=== PATIENT | male | born 1940 | race Caucasian/White ===

== ENCOUNTER 2022-02-22 10:32 | Inpatient (IN) ==
[2022-02-22] MEDS ORDERED: IOPAMIDOL 100 ML BOTTLE IV ONE (10:33)
--- NOTE | 2022-02-22 11:00 | Emergency Department Note ---
SOB HPI General Chief Complaint: Shortness of Breath/Dyspnea Stated Complaint: shortness of breath Time Seen by Provider: 02/22/22 10:48 Source: EMS Mode of arrival: EMS History of Present Illness HPI Narrative: Narrative: 81-year-old male was brought to the emergency room by EMS to be evaluated for shortness of breath. He tested positive at [facility] today and has oxygen saturations dropping to the low 80s without supplemental oxygen. He was brought in on 5 L/min via nasal cannula and was sitting in the low 90s. He does not have an oxygen demand at home. He does have a prescription for at home oxygen but he does not use it and does not typically need it. He has a history of coronary artery disease, stage III CKD, chronic low back pain with morphine pump, alcohol abuse, type 2 diabetes, prostate cancer in remission, chronic candidiasis and a parkinsonian tremor. On 15 February he had a ground-level fall at his home that had worsening right knee pain and back pain. He was unable to ambulate and was admitted to the hospital. He did have an normal EKG but positive troponin. Dr. Solares baking factory worker at [facility] was consulted who just suggested to trend troponins. He was subsequently discharged to [facility] for rehabilitation where he currently resides and tested positive for COVID today and had hypoxia at rest. He denies fever, chills, body aches, nausea or vomiting. He is slightly confused and cannot provide any significant history. His is in the parking lot and the nurses talk to her on the phone and she provided additional history. Related Data Home Medications Medication Instructions Recorded Confirmed polyethylene glycol 3350 17 17 g PO QDAY each 02/20/15 02/22/22 gram/dose oral powder morphine 15 mg/mL intravenous See Dose Instructions .ROUTE 06/12/15 01/27/22 syringe .COMPLEX PRN loratadine 10 mg tablet (Claritin) 10 mg PO QDAY 05/08/20 01/27/22 atorvastatin 40 mg tablet (Lipitor) 40 mg PO QDAY 05/20/21 02/22/22 clopidogrel 75 mg tablet 75 mg PO QDAY tab 05/20/21 02/22/22 aspirin 81 mg tablet 81 mg PO DAILY 02/22/22 02/22/22 latanoprost 0.005 % eye drops 1 drp OPHTHALMIC (EYE) QHS 02/22/22 02/22/22 Previous Rx's Medication Instructions Recorded diabetic supplies, miscellan. #1 each 10/15/15 Prodigy No Coding (blood sugar #50 each NS 02/04/16 diagnostic) Manual Wheelchair #1 ea 12/01/17 Adult Depends (Prevail) #60 each 04/27/18 nitroglycerin 0.3 mg sublingual 0.3 mg SUBLINGUAL Q5-15M PRN #30 06/26/19 tablet tab diclofenac sodium 1 % topical gel 2 g TOPICAL QID PRN #100 g 02/16/20 amlodipine 5 mg tablet 5 mg PO BID #120 tab 10/27/21 nystatin 100,000 unit/gram topical 1 applic TOPICAL BID #180 g 11/04/21 powder linaclotide 145 mcg capsule 145 mcg PO QAM #30 cap 11/06/21 (Linzess) cholecalciferol (vitamin D3) 50 50 mcg PO QDAY #90 cap 11/17/21 mcg (2,000 unit) capsule carvedilol 25 mg tablet 25 mg PO BID 90 Days #180 tab 01/27/22 hydrocodone 10 mg-acetaminophen 1 tab PO Q4H PRN #90 tab MDD 6 01/27/22 325 mg tablet metformin 500 mg tablet 500 mg PO BID 90 Days #180 tab 01/27/22 omeprazole 20 mg capsule,delayed 20 mg PO QDAY #90 cap 02/17/22 release Allergies Allergy/AdvReac Type Severity Reaction Status Date / Time No Known Drug Allergies Allergy Verified 01/27/22 10:56 Review of Systems ROS ROS Narrative: Narrative: All systems ED: reviewed and negative except as stated. [facility] Narrative Patient History Narrative: Narrative: Medical/Surgical/Family History All Active Problems (Updated 02/22/22 @ 13:06 by Donta Reynolds PA-C) COVID-19 (Acute) Parkinsonian tremor (Acute) At high risk for falls (Acute) Physical deconditioning (Acute) Constipation due to opioid therapy (Acute) Left arm pain (Acute) Indigestion (Acute) Candidal intertrigo (Acute) Chest pain (Acute) Medicare annual wellness visit, subsequent (Acute) Falls (Acute) Bilateral impacted cerumen (Acute) Hypertension in stage 3 chronic kidney disease due to type 2 diabetes mellitus (Chronic) Use of opiates for therapeutic purposes (Chronic) Hyperkalemia (Acute) Vitamin D deficiency (Acute) Hyperkalemia (Acute) Tinea cruris (Acute) Annual physical exam (Acute) Medicare annual wellness visit, subsequent (Acute) Stasis dermatitis (Acute) Lower extremity edema (Chronic) Stasis dermatitis (Acute) Tobacco use (Chronic) Hypertension (Chronic) Heart disease (Chronic) Postlaminectomy syndrome, not elsewhere classified (Chronic) Failed back syndrome (Chronic) Chronic kidney disease (CKD) stage G3a/A2, moderately decreased glomerular filtration rate (GFR) between 45-59 mL/min/1.73 square meter and albuminuria creatinine ratio between 30-299 mg/g (Chronic) Type 2 diabetes mellitus without complications (Chronic) Back pain (Chronic) Hernia (Chronic) Gangrene (Chronic) Ruptured appendix (Chronic) Stasis dermatitis of both legs (Chronic) Cobalamin deficiency (Chronic) Pneumonia (Chronic) Chronic kidney disease, stage II (mild) (Chronic) Acidosis (Chronic) Hypertensive renal disease (Chronic) History of radical prostatectomy (Acute) History of lumbosacral spine surgery (Chronic) Status post lumbar spinal fusion (Chronic) History of intraocular lens implant (Acute) History of right inguinal hernia repair (Chronic) History of appendectomy (Chronic) Spinal stenosis (Acute) Prostate cancer (Chronic) Pancreatitis (Chronic ~2013) Open wound (Acute 10/01/14) Hypomagnesemia (Acute) Hypokalemia (Acute) Hypertension, essential, benign (Chronic) Hyperlipidemia (Chronic) Hypercholesterolemia (Acute) Gout (Acute) Gastroesophageal reflux (Acute) Erectile dysfunction (Acute) Edema (Acute 10/01/14) Diverticulosis of colon (Acute) Dehydration (Acute) Degeneration of lumbar or lumbosacral intervertebral disc (Chronic) Deep vein thrombosis (Acute) Constipation (Acute) Colonic polyp (Acute) Chronic low back pain (Chronic 10/01/14) Stage III chronic kidney disease (Chronic) Chest pain (Acute) Barretts esophagus (Acute) Back pain, chronic (Acute) Anemia (Chronic) Medical History Acidosis bicarb 16, if persistent will add sodium bicarb,goal is more than 22 Anemia Mycrocytic Annual physical exam At high risk for falls Back pain Back pain, chronic Barretts esophagus Candidal intertrigo Chest pain Chest pain Chronic kidney disease, stage II (mild) Chronic low back pain (10/01/14) With intrathecal pump in place Cobalamin deficiency ? from omeprazole start 1000 mcg b12 supplement Colonic polyp Constipation Deep vein thrombosis Degeneration of lumbar or lumbosacral intervertebral disc Dehydration Diverticulosis of colon Edema (10/01/14) Erectile dysfunction Failed back syndrome Gangrene age 8 Gastroesophageal reflux Gout Heart disease Hernia Hypercholesterolemia Hyperkalemia Hyperkalemia Hyperlipidemia TG more than 200 LDL above goal HDL is low restart fenofibrate at 54mg po daily will follow and add statins next visit Hypertension Hypertension, essential, benign Hypertensive renal disease Hypokalemia Hypomagnesemia Indigestion Left arm pain Lower extremity edema Medicare annual wellness visit, subsequent Medicare annual wellness visit, subsequent NSTEMI (non-ST elevated myocardial infarction) Open wound (10/01/14) Left Abdomen Pancreatitis (~2013) Physical deconditioning Pneumonia CXR shows mild right ML infitrate cough for one week fever for one day Chest exam shows coarse rales levofloxacin prescribed for a week advised to follow up with PCP in 1-2 weeks also go to ED if symptoms worsen Postlaminectomy syndrome, not elsewhere classified Prediabetes Prostate cancer S/P radical prostatectomy Ruptured appendix Spinal stenosis Stage III chronic kidney disease HTN/NSASIDs >> DM and no proteinuria Stasis dermatitis Stasis dermatitis Tinea cruris Tobacco use Type 2 diabetes mellitus Type 2 diabetes mellitus without complications Use of opiates for therapeutic purposes Surgical History History of appendectomy Ruptured Appendix History of hernia repair x3, mesh inserted in last History of intraocular lens implant Bilateral History of lumbosacral spine surgery Diskectomy X2 History of radical prostatectomy History of right inguinal hernia repair History of surgery Implant / replace [employer] pump w/sed 07/19/2019 REVIS[facility] 09/21/14 Pump Dye Study w/o sed 08/01/2014 L3-S1 RFTC Right w/sed 06/27/2014 MBB lumbar, Right L3-S1 w/sed 06/12/2014 MBB lumbar, Right L3-S1 w/sed 05/24/2014 SI Joint Injection Right w/sed 05/09/2014 TF KOKI #2 L1-2 w/sed 03/01/2014 TF KOKI #1 L1-2 bilat w/sed 02/07/2014 replace [employer]tron[employer] pump [facility] 11/11/12 SI Joint Injection, right 11/13/10 w/sed Status post lumbar spinal fusion Family History Mother Malignant neoplasm of breast Father , at 96y Chronic obstructive pulmonary disease Unknown Diabetes mellitus Parkinson's Disease Social History Smoking Status: Never smoker Alcohol Intake Frequency: 0-2 drinks per day Substance Use: does not use Exam Narrative Narrative: Narrative: Gen: Patient is lethargic, with 5 L via nasal cannula, he is slow to respond but he is aware he is at the hospital Eyes: PERRL, no conjunctival injection , and symmetrical lids. Sclerae non icteric HENMT: Normocephalic Atraumatic head, external nose and ears. Moist MM. Neck: Symmetric, trachea midline, no nuchal rigidity CVS: +S1/S2, No murmurs or gallops. Radial pulses 2+ and equal bilat. No swelling RESP: Increased respiratory effort, no noted wheezes rales or ronchi. MSK: Extremities w/o deformity or ttp. No cyanosis or clubbing. Skin: Warm, Dry . No rashes or lesions . Cap refill less than 2. Neuro: No focal neurological deficit Psych: Patient is slow to respond and slightly confused, he is oriented to place and self. Appropriate mood and affect . Course Vital Signs Vital signs: Vital Signs Temperature 98.6 F 02/22/22 10:41 Pulse Rate 64 02/22/22 10:41 Respiratory Rate 18 02/22/22 10:41 Blood Pressure 143/60 02/22/22 10:41 Pulse Oximetry (%) 91 02/22/22 10:41 Temperature 98.6 F 02/22/22 10:41 Pulse Rate 58 L 02/22/22 12:16 Respiratory Rate 11 L 02/22/22 12:16 Blood Pressure 135/99 02/22/22 12:16 Pulse Oximetry (%) 97 02/22/22 12:16 MDM MDM Narrative Medical decision making narrative: Narrative: Patient was hypoxic at [place] and tested positive for COVID. He requires 5 L to maintain a low 90s. He does not know whether he has had the COVID vaccinations. In reviewing his records he has had the Pfizer series. He denies fever, chills, body aches, nausea or vomiting. He is profoundly short of constantino ath.His pulmonary exam is otherwise unremarkable. He is maintaining 91% on 5 L at this time. He is not tachycardic, he does not flag for sepsis. He will be evaluated with CBC, Chem-8, hepatic panel, troponin, venous blood gas lactate, EKG, and will likely have an angiogram if his kidney function will tolerate. CBC: Mild anemia, slightly decreased white count otherwise unremarkable Chem-8: Unremarkable Hepatic Panel: Troponin: Normal Venous blood gas lactate: Increased bicarb and CO2 otherwise unremarkable normal lactate EKG: Sinus rhythm at a rate of 60 bpm with prolonged VT interval, left ventricular hypertrophy and anterior Q waves and borderline T wave abnormality in the inferior leads, when compared to EKG from January of last year there are no significant changes in morphology. No evidence of acute ischemia at this time. Patient is estimated GFR is 46 and an angiogram of the chest will be obtained at this time to rule out pulmonary embolism or other pathology of the chest. CTA: No PE, bands of atelectasis at the base, bronchitis, no typical features for COVID, acute compression fracture of T12 Hospitalist will be consulted for admission at this time Dr Pelayo: Graciously agreed to admit the patient for further work-up and evaluation for COVID-pneumonia. Lab Data Result diagrams: 02/22/22 11:06 Labs: Lab Results 02/22/22 02/22/22 02/22/22 Range/Units 11:06 11:09 11:23 WBC 4.3 L (4.5-11.0) K/mcL RBC 3.94 L (4.63-6.08) M/mcL Hgb 12.9 L (13.7-17.5) g/dL Hct 39.7 L (40.1-51.0) % POC Hct 41.0 (41-55) MCV 100.8 H (80.0-100.0) fL MCH 32.7 (26.0-34.0) pg MCHC 32.5 (31.0-36.0) g/dL RDW 14.5 (11.5-14.5) % Plt Count 231 (140-440) K/mcL MPV 9.7 (7.4-10.4) fL Immature Gran % (Auto) 0.5 (0.0-0.5) % Neut % (Auto) 48.4 (38.0-78.0) % Lymph % (Auto) 33.2 (15.5-49.0) % Wetzel % (Auto) 15.8 H (1.0-12.0) % Eos % (Auto) 1.6 (0.0-7.0) % Baso % (Auto) 0.5 (0.0-2.0) % Lymph # (Auto) 1.43 L (1.50-4.80) K/mcL Wetzel # (Auto) 0.68 (0.10-0.90) K/mcL Eos # (Auto) 0.07 (0.00-0.70) K/mcL Baso # (Auto) 0.02 (0.00-0.30) K/mcL Immature Gran # 0.02 (0.00-0.05) K/mcl Absolute Neutrophils 2.11 (1.80-8.00) K/mcL POC VBG pH (7.32-7.42) POC VBG pCO2 at Temp (41-51) POC VBG pO2 (25-40) POC VBG HCO3 (24-28) POC VBG Total CO2 (25-29) POC Venous O2 Sat (40-70) POC VBG Base Excess (-2-2) POC Sodium 134 (133-145) POC Potassium 4.1 (3.3-5.1) POC Chloride 96 (96-108) POC Total CO2 28.0 (22-30) POC BUN 18 (6-20) POC Creatinine 1.5 H (0.6-1.2) POC Glucose 112 H (70-105) POC Venous Lactate (0.5-2) POC WB Ioniz Calcium 1.09 L (1.16-1.32) POC Troponin I 0.03 (0.02-0.08) // Range/Units 11:26 WBC (4.5-11.0) K/mcL RBC (4.63-6.08) M/mcL Hgb (13.7-17.5) g/dL Hct (40.1-51.0) % POC Hct (41-55) MCV (80.0-100.0) fL MCH (26.0-34.0) pg MCHC (31.0-36.0) g/dL RDW (11.5-14.5) % Plt Count (140-440) K/mcL MPV (7.4-10.4) fL Immature Gran % (Auto) (0.0-0.5) % Neut % (Auto) (38.0-78.0) % Lymph % (Auto) (15.5-49.0) % Wetzel % (Auto) (1.0-12.0) % Eos % (Auto) (0.0-7.0) % Baso % (Auto) (0.0-2.0) % Lymph # (Auto) (1.50-4.80) K/mcL Wetzel # (Auto) (0.10-0.90) K/mcL Eos # (Auto) (0.00-0.70) K/mcL Baso # (Auto) (0.00-0.30) K/mcL Immature Gran # (0.00-0.05) K/mcl Absolute Neutrophils (1.80-8.00) K/mcL POC VBG pH 7.40 (7.32-7.42) POC VBG pCO2 at Temp 50.9 (41-51) POC VBG pO2 42 H (25-40) POC VBG HCO3 31.9 H (24-28) POC VBG Total CO2 33.0 H (25-29) POC Venous O2 Sat 76.0 H (40-70) POC VBG Base Excess 7.0 H* (-2-2) POC Sodium (133-145) POC Potassium (3.3-5.1) POC Chloride (96-108) POC Total CO2 (22-30) POC BUN (6-20) POC Creatinine (0.6-1.2) POC Glucose (70-105) POC Venous Lactate 0.8 (0.5-2) POC WB Ioniz Calcium (1.16-1.32) POC Troponin I (0.02-0.08) Discharge Plan Patient/Caregiver Discharge Instructions Pt seen by TUBE TELLER/PA only: Yes Clinical Impression: COVID-19 Patient Disposition: Xfer As Inpt ([facility]) Follow up with: Louis Saldivar MD [Primary Care Provider] - Prescriptions: No Action amlodipine 5 mg tablet 5 mg PO BID Qty: 120 2RF nystatin 100,000 unit/gram powder 1 applic topical BID Qty: 180 1RF Linzess 145 mcg capsule 145 mcg PO QAM Qty: 30 1RF cholecalciferol (vitamin D3) 50 mcg (2,000 unit) capsule 50 mcg PO QDAY Qty: 90 3RF metformin 500 mg tablet 500 mg PO BID 90 Days Qty: 180 1RF carvedilol 25 mg tablet 25 mg PO BID 90 Days Qty: 180 1RF Rx Instructions: administer with food omeprazole 20 mg capsule,delayed release(DR/EC) 20 mg PO QDAY Qty: 90 1RF polyethylene glycol 3350 17 gram/dose powder 17 g PO QDAY 0RF Label Comments: Mixed with with 8 oz water, juice, soda, coffee or tea Rx Instructions: mix into 4-8 oz. of any hot/cold/room temp. beverage; use immediately (DME) diabetic supplies, miscellan. kit See Dose Instructions .ROUTE .MEDSUPPLY Qty: 1 0RF Dose Instruction: As directed Rx Instructions: As directed to test once daily (DME) blood sugar diagnostic [Prodigy No Coding] strip See Dose Instructions .ROUTE .MEDSUPPLY Qty: 50 3RF Dose Instruction: As directed Rx Instructions: As directed to test once daily (DME) Manual Wheelchair Qty: 1 0RF Dose Instruction: As directed Rx Instructions: As directed (DME) Adult Depends (Prevail) Qty: 60 0RF Dose Instruction: As directed Rx Instructions: Use 2-3X/day loratadine [Claritin] 10 mg tablet 10 mg PO QDAY 0RF diclofenac sodium 1 % gel 2 g TOPICAL QID PRN (Reason: knee pain) Qty: 100 1RF hydrocodone-acetaminophen 10-325 mg tablet 1 tab PO Q4H MDD 6 PRN (Reason: Pain) Qty: 90 0RF Rx Instructions: 7*MUST LAST 30 DAYS* P/U /, Start / clopidogrel 75 mg tablet 75 mg PO QDAY 0RF Label Comments: TAKE 1 TABLET BY MOUTH ONCE DAILY atorvastatin [Lipitor] 40 mg tablet 40 mg PO QDAY 0RF morphine 15 mg/mL cartridge See Dose Instructions mg .ROUTE .COMPLEX PRN (Reason: Pain) 0RF Rx Instructions: patient unsure of dose, uses in pain pump PRN nitroglycerin 0.3 mg tablet, sublingual 0.3 mg SUBLINGUAL Q5-15M PRN (Reason: chest pain) Qty: 30 0RF Rx Instructions: until response; do not exceed 3 doses per episode Adult Low Dose Aspirin 81 mg Tablet 81 mg PO DAILY 0RF latanoprost 0.005 % drops 1 drp OPHTHALMIC (EYE) QHS 0RF Label Comments: [NO ORIGINAL SIG]
[2022-02-22 11:14] LABS: POC Calcium, Ionized 1.09 (1.16-1.32); POC Creatinine 1.5 (0.6-1.2); POC Potassium 4.1 (3.3-5.1)
[2022-02-22 11:46] LABS: Basophils # (Auto) 0.02 K/mcL (0.00-0.30); Basophils % (Auto) 0.5 % (0.0-2.0); Eosinophils # (Auto) 0.07 K/mcL (0.00-0.70); Eosinophils % (Auto) 1.6 % (0.0-7.0); Hematocrit 39.7 % (40.1-51.0); Hemoglobin 12.9 g/dL (13.7-17.5); Lymphocytes # (Auto) 1.43 K/mcL (1.50-4.80); Lymphocytes % (Auto) 33.2 % (15.5-49.0); Mean Cell Volume 100.8 fL (80.0-100.0); Mean Corpuscular HGB Conc 32.5 g/dL (31.0-36.0); Mean Platelet Volume 9.7 fL (7.4-10.4); Monocytes # (Auto) 0.68 K/mcL (0.10-0.90); Monocytes % (Auto) 15.8 % (1.0-12.0); Neutrophils % (Auto) 48.4 % (38.0-78.0); Platelet Count 231 K/mcL (140-440); RBC 3.94 M/mcL (4.63-6.08); Red Cell Distribution Width 14.5 % (11.5-14.5); WBC 4.3 K/mcL (4.5-11.0)
[2022-02-22] MEDS ORDERED: 0.9 % SODIUM CHLORIDE 500 ML IV ONE (12:05)
--- NOTE | 2022-02-22 12:34 | Cat Scan Report ---
History: Hypoxia, tested positive for Covid, short of breath, back pain TECHNIQUE: Following injection of intravenous nonionic contrast the chest was imaged during the pulmonary arterial phase. Sagittal, coronal and axial MIPS images were created. The radiation exposure was limited using dose reduction technology. FINDINGS: The pulmonary arteries are normal without evidence of pulmonary emboli. There are several bands of atelectasis in both lung bases and the inferior segment of the lingula. There is bronchial wall thickening in the posterior basal segments of both lower lobes. Some of the peripheral bronchi in the right lower lobe are occluded by mucus. There are no groundglass alveolar infiltrates to indicate typical COVID pneumonia. There is no lobar consolidation or mass. No pleural effusion is present. There are no enlarged lymph nodes. The aorta is normal in caliber and there is minimal plaque formation. Heart size is normal. There are few calcified plaques in the coronary arteries. Patient has a mild dextroscoliotic curvature in the midthoracic spine. An acute mild transversely oriented compression fracture is seen beneath the superior endplate of T12 causing mild loss in height. There is an old moderate wedge compression fracture at L1 and chronic disc degeneration at L1-2. Patient has a spinal catheter with the tip located at the T6 level. Moderate bilateral gynecomastia is present. IMPRESSION: No evidence of pulmonary emboli Atelectasis and bronchitis in both lower lobes New mild compression fracture involving the superior endplate of T12 Donta Reynolds was called with the report Interpreted and Authenticated by: Jules Craig 02/22/22
[2022-02-22 13:22] LABS: ALT/SGPT 16 U/L (<40); AST/SGOT 35 U/L (<40); Alkaline Phosphatase 70 U/L (39-117); Bilirubin,Direct < 0.2 mg/dL (0-0.3); Bilirubin,Total 0.3 mg/dL (0.1-1.0); Globulin 3.2 gm/dL (2.2-3.7)
--- NOTE | 2022-02-22 13:55 | Internal Med History&Physical ---
HPI History of Present Illness Patient information: Note initiated : 02/22/22 at 1:40 pm Service Date, if different from initiated Date: [] Patient: Mikel Briggs 81 y/o M admitted on for shortness of breath. Chief Complaint: [oxygen desaturation] Chief complaint: oxygen desaturation History of present illness: Mr. Briggs is a 81 year old M history of lumbar spine compression fracture status post morphine pain pump, CAD, type 2 diabetes mellitus, chronic kidney disease stage III, Parkinson disease, prostate cancer in remission, presenting with oxygen desaturations for 1 day. Patient has a history of recent fall and he was being discharged to [facility]. He has a history of L1 compression fracture on morphine pain pump. Earlier today he was found by [facility] staff to have oxygen and desaturating into the mid 80s on room air. He was being tested positive for COVID-pneumonia today. Patient stated that he does not have any subjective shortness of breath. He does not have any cough or sputum productions. He does not have any respiratory wheezings. He does not have any subjective fever or chills. He is feeling mild general body weakness. He is complaining of moderate lower back pain. Vital signs significant for oxygen desaturating to the mid 80s as well as bradycardia with heart rate in the 50s. He was being placed on 5 L/min of supplemental oxygen's. Labs significant for lack of leukocytosis with WBC 4.3. Serum creatinine level 1.5. Blood glucose 112. CT chest negative for any PE. It instead showing bilateral atelectasis and bronchitis. Constitutional Constitutional: Present weakness; Absent chills, excessive sweating, fatigue or fever(s) EENT Eyes: Absent blurry vision, change in vision, loss of vision or other visual disturbances Ears: Absent decreased hearing or tinnitus Nose, mouth and throat: Absent abnormal hearing, dry mouth, headache(s), nasal congestion or sore throat Cardiovascular Cardiovascular: Absent chest pain, chest pain at rest, edema, irregular heart rhythm or palpatations Respiratory Respiratory: Absent cough, dyspnea or wheezing Gastrointestinal Gastrointestinal: Absent abdominal pain, constipation, diarrhea, nausea or vomiting Musculoskeletal Musculoskeletal: Present back pain; Absent deformity, limited range of motion, muscle cramps, muscle weakness or numbness Integumentary Integumentary: Absent lesions, rash or wounds Neurological Neurological: Absent focal weakness, headache(s) or numbness Psychiatric Psychiatric: Absent anxiety, depression or hallucinations PFSH PFSH All Active Problems (Updated 02/22/22 @ 13:48 by Rafiq Pelayo MD) CAD (coronary artery disease) (Acute) Anemia, macrocytic (Acute) COVID-19 (Acute) Parkinsonian tremor (Acute) At high risk for falls (Acute) Physical deconditioning (Acute) Constipation due to opioid therapy (Acute) Left arm pain (Acute) Indigestion (Acute) Candidal intertrigo (Acute) Chest pain (Acute) Medicare annual wellness visit, subsequent (Acute) Falls (Acute) Bilateral impacted cerumen (Acute) Hypertension in stage 3 chronic kidney disease due to type 2 diabetes mellitus (Chronic) Use of opiates for therapeutic purposes (Chronic) Hyperkalemia (Acute) Vitamin D deficiency (Acute) Hyperkalemia (Acute) Tinea cruris (Acute) Annual physical exam (Acute) Medicare annual wellness visit, subsequent (Acute) Stasis dermatitis (Acute) Lower extremity edema (Chronic) Stasis dermatitis (Acute) Tobacco use (Chronic) Hypertension (Chronic) Heart disease (Chronic) Postlaminectomy syndrome, not elsewhere classified (Chronic) Failed back syndrome (Chronic) Chronic kidney disease (CKD) stage G3a/A2, moderately decreased glomerular filtration rate (GFR) between 45-59 mL/min/1.73 square meter and albuminuria creatinine ratio between 30-299 mg/g (Chronic) Type 2 diabetes mellitus without complications (Chronic) Back pain (Chronic) Hernia (Chronic) Gangrene (Chronic) Ruptured appendix (Chronic) Stasis dermatitis of both legs (Chronic) Cobalamin deficiency (Chronic) Pneumonia (Chronic) Chronic kidney disease, stage II (mild) (Chronic) Acidosis (Chronic) Hypertensive renal disease (Chronic) History of radical prostatectomy (Acute) History of lumbosacral spine surgery (Chronic) Status post lumbar spinal fusion (Chronic) History of intraocular lens implant (Acute) History of right inguinal hernia repair (Chronic) History of appendectomy (Chronic) Spinal stenosis (Acute) Prostate cancer (Chronic) Pancreatitis (Chronic ~2014) Open wound (Acute 10/01/14) Hypomagnesemia (Acute) Hypokalemia (Acute) Hypertension, essential, benign (Chronic) Hyperlipidemia (Chronic) Hypercholesterolemia (Acute) Gout (Acute) Gastroesophageal reflux (Acute) Erectile dysfunction (Acute) Edema (Acute 10/01/14) Diverticulosis of colon (Acute) Dehydration (Acute) Degeneration of lumbar or lumbosacral intervertebral disc (Chronic) Deep vein thrombosis (Acute) Constipation (Acute) Colonic polyp (Acute) Chronic low back pain (Chronic 10/01/14) Stage III chronic kidney disease (Chronic) Chest pain (Acute) Barretts esophagus (Acute) Back pain, chronic (Acute) Anemia (Chronic) Medical History Acidosis bicarb 16, if persistent will add sodium bicarb,goal is more than 22 Anemia Mycrocytic Annual physical exam At high risk for falls Back pain Back pain, chronic Barretts esophagus Candidal intertrigo Chest pain Chest pain Chronic kidney disease, stage II (mild) Chronic low back pain (10/01/14) With intrathecal pump in place Cobalamin deficiency ? from omeprazole start 1000 mcg b12 supplement Colonic polyp Constipation Deep vein thrombosis Degeneration of lumbar or lumbosacral intervertebral disc Dehydration Diverticulosis of colon Edema (10/01/14) Erectile dysfunction Failed back syndrome Gangrene age 8 Gastroesophageal reflux Gout Heart disease Hernia Hypercholesterolemia Hyperkalemia Hyperkalemia Hyperlipidemia TG more than 200 LDL above goal HDL is low restart fenofibrate at 54mg po daily will follow and add statins next visit Hypertension Hypertension, essential, benign Hypertensive renal disease Hypokalemia Hypomagnesemia Indigestion Left arm pain Lower extremity edema Medicare annual wellness visit, subsequent Medicare annual wellness visit, subsequent NSTEMI (non-ST elevated myocardial infarction) Open wound (10/01/14) Left Abdomen Pancreatitis (~2013) Physical deconditioning Pneumonia CXR shows mild right ML infitrate cough for one week fever for one day Chest exam shows coarse rales levofloxacin prescribed for a week advised to follow up with PCP in 1-2 weeks also go to ED if symptoms worsen Postlaminectomy syndrome, not elsewhere classified Prediabetes Prostate cancer S/P radical prostatectomy Ruptured appendix Spinal stenosis Stage III chronic kidney disease HTN/NSASIDs >> DM and no proteinuria Stasis dermatitis Stasis dermatitis Tinea cruris Tobacco use Type 2 diabetes mellitus Type 2 diabetes mellitus without complications Use of opiates for therapeutic purposes Surgical History History of appendectomy Ruptured Appendix History of hernia repair x3, mesh inserted in last History of intraocular lens implant Bilateral History of lumbosacral spine surgery Diskectomy X2 History of radical prostatectomy History of right inguinal hernia repair History of surgery Implant / replace [employer] pump w/sed 07/19/2019 REVISION CATHETER TS 09/21/14 Pump Dye Study w/o sed 08/01/2014 L3-S1 RFTC Right w/sed 06/27/2014 MBB lumbar, Right L3-S1 w/sed 06/12/2014 MBB lumbar, Right L3-S1 w/sed 05/24/2014 SI Joint Injection Right w/sed 05/09/2014 TF KOKI #2 L1-2 w/sed 03/01/2014 TF KOKI #1 L1-2 bilat w/sed 02/07/2014 replace [employer] pump SJRMC 11/11/12 SI Joint Injection, right 11/13/10 w/sed Status post lumbar spinal fusion Family History Mother Malignant neoplasm of breast Father , at 96y Chronic obstructive pulmonary disease Unknown Diabetes mellitus Parkinson's Disease Social History (Updated 05/15/21 @ 10:35 by Maya Harden CMA) marital status: education level: high school occupational status: retired other: 4 children-1 bio, 3 Ext. 7 Grandchildren, 6 Great Grandchildren smoking status: Smokeless tobacco alcohol intake frequency: 0-2 drinks per day substance use type: does not use MEDS/ALLERGIES Home Medications and Allergies Home Medications Medication Instructions Recorded Confirmed Type polyethylene glycol 3350 17 17 g PO QDAY each 02/20/15 02/22/22 History gram/dose oral powder morphine 15 mg/mL intravenous See Dose Instructions .ROUTE 06/12/15 01/27/22 H istory syringe .COMPLEX PRN diabetic supplies, miscellan. #1 each 10/15/15 01/27/22 Rx Prodigy No Coding (blood sugar #50 each NS 02/04/16 01/27/22 Rx diagnostic) Manual Wheelchair #1 ea 12/01/17 01/27/22 Rx Adult Depends (Prevail) #60 each 04/27/18 01/27/22 Rx nitroglycerin 0.3 mg sublingual 0.3 mg SUBLINGUAL Q5-15M PRN #30 06/26/19 02/22/22 Rx tablet tab diclofenac sodium 1 % topical gel 2 g TOPICAL QID PRN #100 g 02/16/20 02/22/22 Rx loratadine 10 mg tablet (Claritin) 10 mg PO QDAY 05/08/20 01/27/22 History atorvastatin 40 mg tablet (Lipitor) 40 mg PO QDAY 05/20/21 02/22/22 History clopidogrel 75 mg tablet 75 mg PO QDAY tab 05/20/21 02/22/22 History amlodipine 5 mg tablet 5 mg PO BID #120 tab 10/27/21 02/22/22 Rx nystatin 100,000 unit/gram topical 1 applic TOPICAL BID #180 g 11/04/21 02/22/22 Rx powder linaclotide 145 mcg capsule 145 mcg PO QAM #30 cap 11/06/21 01/27/22 Rx (Linzess) cholecalciferol (vitamin D3) 50 50 mcg PO QDAY #90 cap 11/17/21 02/22/22 Rx mcg (2,000 unit) capsule carvedilol 25 mg tablet 25 mg PO BID 90 Days #180 tab 01/27/22 02/22/22 Rx hydrocodone 10 mg-acetaminophen 1 tab PO Q4H PRN #90 tab MDD 6 01/27/22 02/22/22 Rx 325 mg tablet metformin 500 mg tablet 500 mg PO BID 90 Days #180 tab 01/27/22 02/22/22 Rx omeprazole 20 mg capsule,delayed 20 mg PO QDAY #90 cap 02/17/22 02/22/22 Rx release aspirin 81 mg tablet 81 mg PO DAILY 02/22/22 02/22/22 History latanoprost 0.005 % eye drops 1 drp OPHTHALMIC (EYE) QHS 02/22/22 02/22/22 History Allergies Allergy/AdvReac Type Severity Reaction Status Date / Time No Known Drug Allergies Allergy Verified 01/27/22 10:56 EXAM Constitutional Vitals: Temp Pulse Resp BP Pulse Ox 37.0 C 58 L 15 144/51 92 02/22/22 10:41 02/22/22 13:16 02/22/22 13:16 02/22/22 13:16 02/22/22 13:16 General appearance: cooperative, no acute distress and obese Head Head exam: Present atraumatic and normocephalic Eye Eye exam: Present EOMI and PERRL ENT ENT exam: Present mucous membranes moist, normal exam and normal external ear exam Additional comments: Nasal cannula in place Neck Neck exam: Present normal inspection; Absent lymphadenopathy, tenderness or thyromegaly Respiratory Respiratory exam: Present decreased breath sounds and rhonchi; Absent accessory muscle use, respiratory distress or wheezes Cardiovascular Cardiovascular exam: Present normal rate and rhythm; Absent JVD GI/Abdominal GI/Abdominal exam: Present normal bowel sounds and soft; Absent organomegaly or tenderness Rectal Rectal exam: Present deferred Extremities Exam Extremities exam: Present full ROM, normal capillary refill and normal inspection; Absent tenderness Neurological Exam Neurological exam: Present alert, CN II-XII intact and oriented X3; Absent motor sensory deficit Psychiatric Psychiatric exam: Present normal affect and normal mood; Absent anxious or depressed Skin Skin exam: Present dry and intact DATA Data Completed and Pending Labs: Labs from last 24 hours 02/22/22 02/22/22 02/22/22 11:26 11:23 11:09 WBC RBC Hgb Hct POC Hct 41.0 MCV MCH MCHC RDW Plt Count MPV Immature Gran % (Auto) Neut % (Auto) Lymph % (Auto) [place] % (Auto) Eos % (Auto) Baso % (Auto) Lymph # (Auto) [place] # (Auto) Eos # (Auto) Baso # (Auto) Immature Gran # Absolute Neutrophils POC VBG pH 7.40 POC VBG pCO2 at Temp 50.9 POC VBG pO2 42 H POC VBG HCO3 31.9 H POC VBG Total CO2 33.0 H POC Venous O2 Sat 76.0 H POC VBG Base Excess 7.0 H* POC Sodium 134 POC Potassium 4.1 POC Chloride 96 POC Total CO2 28.0 POC BUN 18 POC Creatinine 1.5 H POC Glucose 112 H POC Venous Lactate 0.8 POC WB Ioniz Calcium 1.09 L Total Bilirubin Direct Bilirubin AST ALT Alkaline Phosphatase Total Protein Albumin Globulin POC Troponin I 0.03 02/22/22 02/22/22 11:06 11:06 WBC 4.3 L RBC 3.94 L Hgb 12.9 L Hct 39.7 L POC Hct MCV 100.8 H MCH 32.7 MCHC 32.5 RDW 14.5 Plt Count 231 MPV 9.7 Immature Gran % (Auto) 0.5 Neut % (Auto) 48.4 Lymph % (Auto) 33.2 [place] % (Auto) 15.8 H Eos % (Auto) 1.6 Baso % (Auto) 0.5 Lymph # (Auto) 1.43 L [place] # (Auto) 0.68 Eos # (Auto) 0.07 Baso # (Auto) 0.02 Immature Gran # 0.02 Absolute Neutrophils 2.11 POC VBG pH POC VBG pCO2 at Temp POC VBG pO2 POC VBG HCO3 POC VBG Total CO2 POC Venous O2 Sat POC VBG Base Excess POC Sodium POC Potassium POC Chloride POC Total CO2 POC BUN POC Creatinine POC Glucose POC Venous Lactate POC WB Ioniz Calcium Total Bilirubin 0.3 Direct Bilirubin < 0.2 AST 35 ALT 16 Alkaline Phosphatase 70 Total Protein 6.2 Albumin 3.0 L Globulin 3.2 POC Troponin I A/P Assessment and plan (1) COVID-19: Status: Acute (2) Parkinsonian tremor: Status: Acute (3) Hypertension in stage 3 chronic kidney disease due to type 2 diabetes mellitus: Status: Chronic (4) Anemia, macrocytic: Status: Acute (5) Physical deconditioning: Status: Acute (6) Prostate cancer: Status: Chronic Comment: S/P radical prostatectomy (7) CAD (coronary artery disease): Status: Acute (8) Status post lumbar spinal fusion: Status: Chronic Narrative A/P Narrative: Assessment and Plans: 1. CoVID pneumonia: Inpatient med surg telemetry Isolation: airborne and contact Supplemental oxygen therapy Blood culture cbc w/ auto diff in the morning to trend WBC Remdesivir Dexamethasone 2. Multiple spinal compression fracture: Continue Morphine pump 3. Chronic kidney disease III associated with essential hypertension and T2DM: HgA1c Hold Metformin SSI AC HS Accu Chek AC HS Hypoglycemia protocol Diabetic diet Avoid nephrotoxic agents Saline lock CMP in the morning to trend kidney functions Continue oral antihypertensives 4. Anemia, macrocytic: cbc w/ auto diff in the morning to trend H/H 5. h/o CAD: Aspirin Plavix Statin 6. Parkinsonian tremors: Continue to monitor 7. Prostate cancer in remission: Outpatient PCP follow up for cancer survillance GI ppx: continue oral PPI from home regimen DVT ppx: Heparin Code status: Full Prognosis: guarded Disposition: inpatient med surg telemetry Time Spent With Patient Time: Total time spent is greater than 50% in coordination of care (as documented) at patient's floor/unit and/or counseling patient: Total time spent with greater than 50% in coordination of care (as documented) at patient's floor/unit and/or counseling patient:: 50 - 70 minutes
[2022-02-22] MEDS ORDERED: IPRATROPIUM/ALBUTEROL 3 ML AMPUL.NEB NEB PRN (14:58)
[2022-02-22] MEDS ORDERED: ONDANSETRON 4 MG/2 ML VIAL IV PRN (14:58)
[2022-02-22] MEDS ORDERED: DEXTROSE 50% 50 ML VIAL IV PRN (14:58)
[2022-02-22] MEDS ORDERED: MORPHINE PRN (14:58)
[2022-02-22] MEDS ORDERED: DEXTROSE 31 GM ORAL.SUSP PO PRN (14:58)
[2022-02-22] MEDS ORDERED: traZODone HCL 50 MG TABLET PO PRN (14:58)
[2022-02-22] MEDS ORDERED: guaiFENesin/DEXTROMETHORPHAN ORAL SOL PO PRN (14:58)
[2022-02-22] MEDS ORDERED: ACETAMINOPHEN 325 MG TABLET PO PRN (14:58)
[2022-02-22] MEDS ORDERED: Diclofenac Sodium 1 % gel TOPICAL PRN (15:28)
[2022-02-22] MEDS ORDERED: NITROGLYCERIN 0.4 MG TAB.SUBL SL PRN (15:29)
[2022-02-22 15:53] LABS: Estimated Average Glucose(eAG) 123 mg/dL; Hemoglobin A1C 5.9 % Hgb (4.0-6.0)
[2022-02-22] MEDS ORDERED: REMDESIVIR 200 MG in 0.9 % SODIUM CHLORIDE 250 ML IV ONE (16:00)
[2022-02-22] MEDS: HYDROcodone/APAP 10/325MG TABLET PO PRN ×2 (16:29→21:21)
[2022-02-22] MEDS: DEXAMETHASONE 4 MG TABLET PO SCH (16:30)
[2022-02-22] MEDS: 0.9 % SODIUM CHLORIDE 10 ML SYRINGE IV SCH ×2 (16:37→21:21)
[2022-02-22] MEDS: CARVEDILOL 12.5 MG TABLET PO SCH (17:41)
[2022-02-22] MEDS: INSULIN LISPRO 1 UNIT/0.01 ML UNIT SQ SCH ×2 (17:52→21:00)
[2022-02-22 19:50] LABS: Prothrombin Time 13.8 sec (11.9-14.5)
[2022-02-22] MEDS: LATANOPROST OPHTH DROPS 2.5ML BOTTLE OU SCH (20:59)
[2022-02-22] MEDS: SENNOSIDES 1 TABLET PO SCH (21:17)
[2022-02-22] MEDS: DOCUSATE SODIUM 100 MG CAPSULE PO SCH (21:17)
[2022-02-22] MEDS: HEPARIN 5,000 UNIT/ML VIAL SQ SCH (21:17)
[2022-02-22] MEDS: NYSTATIN POWDER BOTTLE 15GM TOPICAL SCH (21:17)
[2022-02-22] MEDS: amLODIPine 5 MG TABLET PO SCH (21:17)
[2022-02-23] MEDS: HYDROcodone/APAP 10/325MG TABLET PO PRN (04:53)
[2022-02-23] MEDS: 0.9 % SODIUM CHLORIDE 10 ML SYRINGE IV SCH ×3 (04:54→20:15)
[2022-02-23 06:09] LABS: Basophils # (Auto) 0.01 K/mcL (0.00-0.30); Basophils % (Auto) 0.4 % (0.0-2.0); Eosinophils # (Auto) 0 K/mcL (0.00-0.70); Eosinophils % (Auto) 0 % (0.0-7.0); Hemoglobin 14.3 g/dL (13.7-17.5); Lymphocytes % (Auto) 23.4 % (15.5-49.0); Mean Cell Volume 101.8 fL (80.0-100.0); Mean Corpuscular HGB Conc 31.8 g/dL (31.0-36.0); Mean Platelet Volume 9.3 fL (7.4-10.4); Monocytes # (Auto) 0.09 K/mcL (0.10-0.90); Monocytes % (Auto) 3.5 % (1.0-12.0); Neutrophils % (Auto) 72.3 % (38.0-78.0); Platelet Count 268 K/mcL (140-440); RBC 4.42 M/mcL (4.63-6.08); Red Cell Distribution Width 13.8 % (11.5-14.5); WBC 2.6 K/mcL (4.5-11.0)
[2022-02-23 06:31] LABS: ALT/SGPT 18 U/L (<40); AST/SGOT 33 U/L (<40); Albumin 3.1 gm/dL (3.2-5.2); Albumin/Globulin Ratio 0.9 (1.0-2.3); Alkaline Phosphatase 76 U/L (39-117); Bilirubin,Total 0.3 mg/dL (0.1-1.0); Blood Urea Nitrogen 17 mg/dL (8-23); Calcium 8.6 mg/dL (8.6-10.4); Carbon Dioxide 22 mmol/L (22-30); Chloride 97 mmol/L (96-108); Globulin 3.6 gm/dL (2.2-3.7); Glomerular Filtration Rate 50; Glucose 224 mg/dL (70-105); Phosphorous 5.2 mg/dL (2.5-4.5)
[2022-02-23 06:46] LABS: Ferritin 138.3 ng/mL (30.0-400.0)
[2022-02-23] MEDS: INSULIN LISPRO 1 UNIT/0.01 ML UNIT SQ SCH ×4 (08:13→20:27)
[2022-02-23] MEDS: ATORVASTATIN 40 MG TABLET PO SCH (08:16)
[2022-02-23] MEDS: HEPARIN 5,000 UNIT/ML VIAL SQ SCH ×2 (08:16→20:13)
[2022-02-23] MEDS: ASPIRIN 81 MG TAB.CHEW PO SCH (08:16)
[2022-02-23] MEDS: CARVEDILOL 12.5 MG TABLET PO SCH ×2 (08:16→17:09)
[2022-02-23] MEDS: CLOPIDOGREL 75 MG TABLET PO SCH (08:16)
[2022-02-23] MEDS: DOCUSATE SODIUM 100 MG CAPSULE PO SCH ×2 (08:17→20:13)
[2022-02-23] MEDS: VITAMIN D3 25 MCG TABLET PO SCH (08:17)
[2022-02-23] MEDS: OMEPRAZOLE 20 MG CAPSULE PO SCH (08:17)
[2022-02-23] MEDS: LORATADINE 10 MG TABLET PO SCH (08:17)
[2022-02-23] MEDS: DEXAMETHASONE 4 MG TABLET PO SCH (08:17)
[2022-02-23] MEDS: amLODIPine 5 MG TABLET PO SCH ×2 (08:17→20:13)
[2022-02-23] MEDS: Linaclotide [Linzess] 145 mcg capsule PO SCH (08:24)
[2022-02-23] MEDS: NYSTATIN POWDER BOTTLE 15GM TOPICAL SCH ×2 (08:25→20:15)
[2022-02-23] MEDS: POLYETHYLENE GLYCOL 3350 17 GM PACKET PO SCH (08:25)
[2022-02-23] MEDS: REMDESIVIR 100 MG in 0.9 % SODIUM CHLORIDE 250 ML IV SCH (10:51)
--- NOTE | 2022-02-23 11:11 | Internal Med Progress Note ---
SUBJECTIVE Subjective Patient information: Note initiated : 02/23/22 at 11:09 am Service Date, if different from initiated Date: [] Patient: Mikel Briggs 81 y/o M admitted on 02/22/22 for shortness of breath. Chief Complaint: [] Interval history: History of present illness: Mr. Briggs is a 81 year old M history of lumbar spine compression fracture status post morphine pain pump, CAD, type 2 diabetes mellitus, chronic kidney disease stage III, Parkinson disease, prostate cancer in remission, presenting with oxygen desaturations for 1 day. Patient has a history of recent fall and he was being discharged to [facility] [place]. He has a history of L1 compression fracture on morphine pain pump. Earlier today he was found by retirement staff to have oxygen and desaturating into the mid 80s on room air. He was being tested positive for COVID-pneumonia today. Patient stated that he does not have any subjective shortness of breath. He does not have any cough or sputum productions. He does not have any respiratory wheezings. He does not have any subjective fever or chills. He is feeling mild general body weakness. He is complaining of moderate lower back pain. Vital signs significant for oxygen desaturating to the mid 80s as well as bradycardia with heart rate in the 50s. He was being placed on 5 L/min of supplemental oxygen's. Labs significant for lack of leukocytosis with WBC 4.3. Serum creatinine level 1.5. Blood glucose 112. CT chest negative for any PE. It instead showing bilateral atelectasis and bronchitis. 02/23: Afebrile overnight. Patient is down to 1 L/min of oxygen's this morning. Patient is alert breath confused. Patient denies any shortness of breath or cough or respiratory wheezing. Denies any fever or chills. Continue supplemental oxygen therapy to get up with remdesivir and dexamethasone for COVID-pneumonia. Constitutional Vitals: Vital Signs Temp Pulse Resp BP Pulse Ox 36.2 C 61 18 122/79 94 02/23/22 08:40 02/23/22 08:00 02/23/22 08:00 02/23/22 08:40 02/23/22 08:40 Period Temp Pulse Resp BP Sys/Samayoa Pulse Ox Last 24 Hr 36.2 C-37.0 C 50-99 07-14 116-150/51-103 87-98 Intake and Output 02/22/22 02/23/22 02/23/22 21:59 05:59 13:59 Intake Total 250 Output Total 101 176 Balance 149 -176 Weight 105.233 kg Intake & Output: Intake & Output 02/22/22 02/23/22 02/23/22 21:59 05:59 13:59 Intake Total 250 Output Total 101 176 Balance 149 -176 Weight 105.233 kg Intake: IV 250 Veklury 200 mg In Sodium 250 Chloride 0.9% 250 ml @ 500 mls/ hr IV ONCE ONE Rx#:[id number] Output: Void Amount 100 175 # of times incontinent of urine 1 1 Other: Urine Appearance Clear Clear Urine Color Dark Yellow Pale Urine Odor Strong General appearance: obese Head Head exam: Present atraumatic and normal inspection Eye Eye exam: Present normal appearance ENT ENT exam: Present mucous membranes moist, normal exam and normal external ear exam Additional comments: nasal cannula in place Neck Neck exam: Present normal inspection Respiratory Respiratory exam: Present rhonchi Cardiovascular Cardiovascular exam: Present normal rate and rhythm GI/Abdominal GI/Abdominal exam: Present normal bowel sounds Back Exam Back exam: Present normal inspection Neurological Exam Neurological exam: Present alert and oriented X3 Skin Skin exam: Present intact and warm OBJ DATA Labs CBC & Chem 7: 02/23/22 05:43 02/23/22 05:43 Labs: Abnormal Lab Results 02/23/22 02/23/22 02/22/22 05:43 05:43 19:16 WBC 2.6 L RBC 4.42 L Hgb Hct MCV 101.8 H Hinds % (Auto) Lymph # (Auto) 0.60 L Hinds # (Auto) 0.09 L D-Dimer POC VBG pO2 POC VBG HCO3 POC VBG Total CO2 POC Venous O2 Sat POC VBG Base Excess Creatinine 1.3 H POC Creatinine Glucose 224 H POC Glucose POC WB Ioniz Calcium Phosphorus 5.2 H Lactate Dehydrogenase 272 H C-Reactive Protein 1.50 H Albumin 3.1 L Albumin/Globulin Ratio 0.9 L 02/22/22 02/22/22 02/22/22 19:16 11:26 11:09 WBC RBC Hgb Hct MCV Hinds % (Auto) Lymph # (Auto) Hinds # (Auto) D-Dimer 3.00 H POC VBG pO2 42 H POC VBG HCO3 31.9 H POC VBG Total CO2 33.0 H POC Venous O2 Sat 76.0 H POC VBG Base Excess 7.0 H* Creatinine POC Creatinine 1.5 H Glucose POC Glucose 112 H POC WB Ioniz Calcium 1.09 L Phosphorus Lactate Dehydrogenase C-Reactive Protein Albumin Albumin/Globulin Ratio 02/22/22 02/22/22 11:06 11:06 WBC 4.3 L RBC 3.94 L Hgb 12.9 L Hct 39.7 L MCV 100.8 H Hinds % (Auto) 15.8 H Lymph # (Auto) 1.43 L Hinds # (Auto) D-Dimer POC VBG pO2 POC VBG HCO3 POC VBG Total CO2 POC Venous O2 Sat POC VBG Base Excess Creatinine POC Creatinine Glucose POC Glucose POC WB Ioniz Calcium Phosphorus Lactate Dehydrogenase C-Reactive Protein Albumin 3.0 L Albumin/Globulin Ratio Meds: Medications Acetaminophen (Acetaminophen 325 Mg Tablet) 650 mg PO Q6HP PRN; Protocol PRN Reason: Per Pain Protocol/Fever > 101 Hydrocodone Bitart/Acetaminophen (Hydrocodone/Apap 10/325mg Tablet) 1 tab PO Q4H PRN; Protocol PRN Reason: Pain Last Admin: 02/23/22 04:53 Dose: 1 tab Documented by: Albuterol/Ipratropium (Ipratropium/Albuterol 3 Ml Ampul.Neb) 3 ml NEB Q4HRT PRN PRN Reason: Wheezing Amlodipine Besylate (Amlodipine 5 Mg Tablet) 5 mg PO BID [facility] Last Admin: 02/23/22 08:17 Dose: 5 mg Documented by: Aspirin (Aspirin 81 Mg Tab.Chew) 81 mg PO DAILY [facility] Last Admin: 02/23/22 08:16 Dose: 81 mg Documented by: Atorvastatin Calcium (Atorvastatin 40 Mg Tablet) 40 mg PO QDAY [facility] Last Admin: 02/23/22 08:16 Dose: 40 mg Documented by: [facility]ilol ([facility].5 Mg [facility]t) [facility] Last Admin: 02/23/22 08:16 Dose: 25 mg Documented by: Clopidogrel Bisulfate (Clopidogrel 75 Mg Tablet) 75 mg PO QDAY [facility] Last Admin: 02/23/22 08:16 Dose: 75 mg Documented by: Dexamethasone (Dexamethasone 4 Mg Tablet) 6 mg PO DAILY [facility] Last Admin: 02/23/22 08:17 Dose: 6 mg Documented by: Dextrose (Dextrose 50% 50 Ml Vial) 0 ml IV UD PRN PRN Reason: Per Sliding Scale Diagnostic Test (Pha) (Accu-Chek 1 Each Strip) 1 each FS ACHS [facility] Last Admin: 02/23/22 08:13 Dose: 1 each Documented by: Docusate Sodium (Docusate Sodium 100 Mg Capsule) 100 mg PO BID [facility] Last Admin: 02/23/22 08:17 Dose: 100 mg Documented by: Glucose (Dextrose 31 Gm Oral.Susp) 15 gm PO PRN PRN PRN Reason: Hypoglycemia Guaifenesin (Guaifenesin/Dextromethorphan Oral Harika) 10 ml PO Q4HP PRN PRN Reason: Cough Heparin Sodium (Porcine) (Heparin 5,000 Unit/Ml Vial) 5,000 unit SQ Q12 [facility] Last Admin: 02/23/22 08:16 Dose: 5,000 unit Documented by: REMDESIVIR 100 mg/ Sodium (Chloride) 250 mls @ 500 mls/hr IV Q24H [facility] Stop: 02/26/22 09:29 Last Admin: 02/23/22 10:51 Dose: 500 mls/hr Documented by: Insulin Human Lispro (Insulin Lispro 1 Unit/0.01 Ml Unit) 0 unit SQ [facility]; Protocol Last Admin: 02/23/22 08:13 Dose: 3 unit Documented by: Latanoprost (Latanoprost Ophth Drops 2.5ml Bottle) 1 gtt OU QHS [facility] Last Admin: 02/22/22 20:59 Dose: Not Given Documented by: Loratadine (Loratadine 10 Mg Tablet) 10 mg PO QDAY [facility] Last Admin: 02/23/22 08:17 Dose: 10 mg Documented by: Nitroglycerin (Nitroglycerin 0.4 Mg Tab.Subl) 0.4 mg SL Q5M PRN PRN Reason: Chest Pain Nystatin (Nystatin Powder Bottle 15gm) 1 dose TOPICAL BID [facility] Last Admin: 02/23/22 08:25 Dose: 1 dose Documented by: Omeprazole (Omeprazole 20 Mg Capsule) 20 mg PO QDAY [facility] Last Admin: 02/23/22 08:17 Dose: 20 mg Documented by: Ondansetron HCl (Ondansetron 4 Mg/2 Ml Vial) 4 mg IV Q6HP PRN PRN Reason: Nausea And Vomiting Diclofenac Sodium 1 (% Gel) 1 dose TOPICAL QIDP PRN PRN Reason: knee pain Linaclotide [Linzess (] 145 Mcg Capsule) 1 dose PO QAM [facility] Last Admin: 02/23/22 08:24 Dose: Not Given Documented by: Polyethylene Glycol (Polyethylene Glycol 3350 17 Gm Packet) 17 gm PO QDAY [facility] Last Admin: 02/23/22 08:25 Dose: 17 gm Documented by: Senna (Sennosides 1 Tablet) 2 tab PO HS [facility] Last Admin: 02/22/22 21:17 Dose: 2 tab Documented by: Sodium Chloride (0.9 % Sodium Chloride 10 Ml Syringe) 10 ml IV Q8 [facility] Last Admin: 02/23/22 04:54 Dose: 10 ml Documented by: Trazodone HCl (Trazodone Hcl 50 Mg Tablet) 25 mg PO HSP PRN PRN Reason: Insomnia Vitamin D (Vitamin D3 25 Mcg Tablet) 50 mcg PO DAILY [facility] Last Admin: 02/23/22 08:17 Dose: 50 mcg Documented by: A/P Assessment and plan (1) COVID-19: Status: Acute (2) Parkinsonian tremor: Status: Acute (3) Hypertension in stage 3 chronic kidney disease due to type 2 diabetes mellitus: Status: Chronic (4) Anemia, macrocytic: Status: Acute (5) Physical deconditioning: Status: Acute (6) Prostate cancer: Status: Chronic Comment: S/P radical prostatectomy (7) CAD (coronary artery disease): Status: Acute (8) Status post lumbar spinal fusion: Status: Chronic Narrative A/P Narrative: Assessment and Plans: 1. CoVID pneumonia: Inpatient med surg telemetry Isolation: airborne and contact Supplemental oxygen therapy Blood culture, no growth to date cbc w/ auto diff in the morning to trend WBC Remdesivir Dexamethasone 2. Multiple spinal compression fracture: Continue Morphine pump 3. Chronic kidney disease III associated with essential hypertension and T2DM: HgA1c Hold Metformin SSI AC HS Accu Chek AC HS Hypoglycemia protocol Diabetic diet Avoid nephrotoxic agents Saline lock CMP in the morning to trend kidney functions Continue oral antihypertensives 4. Anemia, macrocytic: cbc w/ auto diff in the morning to trend H/H 5. h/o CAD: Aspirin Plavix Statin 6. Parkinsonian tremors: Continue to monitor 7. Prostate cancer in remission: Outpatient PCP follow up for cancer surveillance GI ppx: continue oral PPI from home regimen DVT ppx: Heparin Code status: Full Prognosis: guarded Disposition: inpatient med surg telemetry Time Spent With Patient Time: Total time spent is greater than 50% in coordination of care (as documented) at patient's floor/unit and/or counseling patient: Total time spent with greater than 50% in coordination of care (as documented) at patient's floor/unit and/or counseling patient:: 35 - 50 minutes QUALITY VTE Deep Vein Thrombosis/Pulmonary Embolism Present on Admission: No
--- NOTE | 2022-02-23 13:19 | Internal Med Progress Note ---
SUBJECTIVE Subjective Patient information: Note initiated : 02/23/22 at 1:14 pm Service Date, if different from initiated Date: [] Patient: Mikel Briggs 81 y/o M admitted on 02/22/22 for shortness of breath. Chief Complaint: [] Interval history: History of present illness: Mr. Briggs is a 81 year old M history of lumbar spine compression fracture status post morphine pain pump, CAD, type 2 diabetes mellitus, chronic kidney disease stage III, Parkinson disease, prostate cancer in remission, presenting with oxygen desaturations for 1 day. Patient has a history of recent fall and he was being discharged to assisted [place]. He has a history of L1 compression fracture on morphine pain pump. Earlier today he was found by assisted staff to have oxygen and desaturating into the mid 80s on room air. He was being tested positive for COVID-pneumonia today. Patient stated that he does not have any subjective shortness of breath. He does not have any cough or sputum productions. He does not have any respiratory wheezings. He does not have any subjective fever or chills. He is feeling mild general body weakness. He is complaining of moderate lower back pain. Vital signs significant for oxygen desaturating to the mid 80s as well as bradycardia with heart rate in the 50s. He was being placed on 5 L/min of supplemental oxygen's. Labs significant for lack of leukocytosis with WBC 4.3. Serum creatinine level 1.5. Blood glucose 112. CT chest negative for any PE. It instead showing bilateral atelectasis and bronchitis. 02/23: Afebrile overnight. Patient is down to 1 L/min of oxygen's this morning. Patient is alert breath confused. Patient denies any shortness of breath or cough or respiratory wheezing. Denies any fever or chills. Continue supplemental oxygen therapy to get up with remdesivir and dexamethasone for COVID-pneumonia. 02/24 Constitutional Vitals: Vital Signs Temp Pulse Resp BP Pulse Ox 97.1 F 61 20 134/74 95 02/23/22 12:00 02/23/22 12:00 02/23/22 12:00 02/23/22 12:02/23/22 12:00 Period Temp Pulse Resp BP Sys/Samay[place] Pulse Ox Last 24 Hr 97.1 F-98.6 F 50-99 11-22 116-150/51-103 87-98 Intake and Output 02/22/22 02/23/22 02/23/22 21:59 05:59 13:59 Intake Total 250 250 Output Total 101 176 Balance 149 -176 250 Weight 105.233 kg Intake & Output: Intake & Output 02/22/22 02/23/22 02/23/22 21:59 05:59 13:59 Intake Total 250 250 Output Total 101 176 Balance 149 -176 250 Weight 105.233 kg Intake: IV 250 250 Veklury 100 mg In Sodium 250 250 Chloride 0.9% 250 ml @ 500 mls/ hr IV Q24H [facility] Rx#:[id number] Output: Void Amount 100 175 # of times incontinent of urine 1 1 Other: Urine Appearance Clear Clear Urine Color Dark Yellow Pale Urine Odor Strong Exam: General: Alert, Awake, No acute Distress Eyes/N/T: EOMI, Head/Neck: neck supple, CV: RRR, No murmurs, Pulm: rhonic b/l, no Abd: soft, nontender, +BS x4 Ext: no clubbing/cyanosis/edema Neuro: Alert, no focal deficits, moves all extremities, Skin: warm/dry OBJ DATA Labs CBC & Chem 7: 02/23/22 05:43 02/23/22 05:43 Labs: Abnormal Lab Results 02/23/22 02/23/22 02/22/22 05:43 05:43 19:16 WBC 2.6 L RBC 4.42 L Hgb Hct MCV 101.8 H [place] % (Auto) Lymph # (Auto) 0.60 L [place] # (Auto) 0.09 L D-Dimer POC VBG pO2 POC VBG HCO3 POC VBG Total CO2 POC Venous O2 Sat POC VBG Base Excess Creatinine 1.3 H POC Creatinine Glucose 224 H POC Glucose POC WB Ioniz Calcium Phosphorus 5.2 H Lactate Dehydrogenase 272 H C-Reactive Protein 1.50 H Albumin 3.1 L Albumin/Globulin Ratio 0.9 L 02/22/22 02/22/22 02/22/22 19:16 11:26 11:09 WBC RBC Hgb Hct MCV [place] % (Auto) Lymph # (Auto) [place] # (Auto) D-Dimer 3.00 H POC VBG pO2 42 H POC VBG HCO3 31.9 H POC VBG Total CO2 33.0 H POC Venous O2 Sat 76.0 H POC VBG Base Excess 7.0 H* Creatinine POC Creatinine 1.5 H Glucose POC Glucose 112 H POC WB Ioniz Calcium 1.09 L Phosphorus Lactate Dehydrogenase C-Reactive Protein Albumin Albumin/Globulin Ratio 02/22/22 02/22/22 11:06 11:06 WBC 4.3 L RBC 3.94 L Hgb 12.9 L Hct 39.7 L MCV 100.8 H [place] % (Auto) 15.8 H Lymph # (Auto) 1.43 L [place] # (Auto) D-Dimer POC VBG pO2 POC VBG HCO3 POC VBG Total CO2 POC Venous O2 Sat POC VBG Base Excess Creatinine POC Creatinine Glucose POC Glucose POC WB Ioniz Calcium Phosphorus Lactate Dehydrogenase C-Reactive Protein Albumin 3.0 L Albumin/Globulin Ratio Meds: Medications Acetaminophen (Acetaminophen 325 Mg Tablet) 650 mg PO Q6HP PRN; Protocol PRN Reason: Per Pain Protocol/Fever > 101 Hydrocodone Bitart/Acetaminophen (Hydrocodone/Apap 10/325mg Tablet) 1 tab PO Q4H PRN; Protocol PRN Reason: Pain Last Admin: 02/23/22 04:53 Dose: 1 tab Documented by: Albuterol/Ipratropium (Ipratropium/Albuterol 3 Ml Ampul.Neb) 3 ml NEB Q4HRT PRN PRN Reason: Wheezing Amlodipine Besylate (Amlodipine 5 Mg Tablet) 5 mg PO BID [facility] Last Admin: 02/23/22 08:17 Dose: 5 mg Documented by: Aspirin (Aspirin 81 Mg Tab.Chew) 81 mg PO DAILY [facility] Last Admin: 02/23/22 08:16 Dose: 81 mg Documented by: Atorvastatin Calcium (Atorvastatin 40 Mg Tablet) 40 mg PO QDAY [facility] Last Admin: 02/23/22 08:16 Dose: 40 mg Documented by: Carvedilol (Carvedilol 12.5 Mg Tablet) 25 mg PO BIDCC [facility] Last Admin: 02/23/22 08:16 Dose: 25 mg Documented by: Clopidogrel Bisulfate (Clopidogrel 75 Mg Tablet) 75 mg PO QDAY [facility] Last Admin: 02/23/22 08:16 Dose: 75 mg Documented by: Dexamethasone (Dexamethasone 4 Mg Tablet) 6 mg PO DAILY [facility] Last Admin: 02/23/22 08:17 Dose: 6 mg Documented by: Dextrose (Dextrose 50% 50 Ml Vial) 0 ml IV UD PRN PRN Reason: Per Sliding Scale Diagnostic Test (Pha) (Accu-Chek 1 Each Strip) 1 each FS [facility] Last Admin: 02/23/22 11:54 Dose: 1 each Documented by: Docusate Sodium (Docusate Sodium 100 Mg Capsule) 100 mg PO BID [facility] Last Admin: 02/23/22 08:17 Dose: 100 mg Documented by: Glucose (Dextrose 31 Gm Oral.Susp) 15 gm PO PRN PRN PRN Reason: Hypoglycemia Guaifenesin (Guaifenesin/Dextromethorphan Oral Harika) 10 ml PO Q4HP PRN PRN Reason: Cough Heparin Sodium (Porcine) (Heparin 5,000 Unit/Ml Vial) 5,000 unit SQ Q12 [facility] Last Admin: 02/23/22 08:16 Dose: 5,000 unit Documented by: REMDESIVIR 100 mg/ Sodium (Chloride) 250 mls @ 500 mls/hr IV Q24H [facility] Stop: 02/26/22 09:29 Last Infusion: 02/23/22 11:29 Dose: Infused Documented by: Insulin Human Lispro (Insulin Lispro 1 Unit/0.01 Ml Unit) 0 unit SQ [facility]; Protocol Last Admin: 02/23/22 11:54 Dose: Not Given Documented by: Latanoprost (Latanoprost Ophth Drops 2.5ml Bottle) 1 gtt OU QHS [facility] Last Admin: 02/22/22 20:59 Dose: Not Given Documented by: Loratadine (Loratadine 10 Mg Tablet) 10 mg PO QDAY [facility] Last Admin: 02/23/22 08:17 Dose: 10 mg Documented by: Nitroglycerin (Nitroglycerin 0.4 Mg Tab.Subl) 0.4 mg SL Q5M PRN PRN Reason: Chest Pain Nystatin (Nystatin Powder Bottle 15gm) 1 dose TOPICAL BID [facility] Last Admin: 02/23/22 08:25 Dose: 1 dose Documented by: Omeprazole (Omeprazole 20 Mg Capsule) 20 mg PO QDAY [facility] Last Admin: 02/23/22 08:17 Dose: 20 mg Documented by: Ondansetron HCl (Ondansetron 4 Mg/2 Ml Vial) 4 mg IV Q6HP PRN PRN Reason: Nausea And Vomiting Diclofenac Sodium 1 (% Gel) 1 dose TOPICAL QIDP PRN PRN Reason: knee pain Linaclotide [Linzess (] 145 Mcg Capsule) 1 dose PO QAM [facility] Last Admin: 02/23/22 08:24 Dose: Not Given Documented by: Polyethylene Glycol (Polyethylene Glycol 3350 17 Gm Packet) 17 gm PO QDAY [facility] Last Admin: 02/23/22 08:25 Dose: 17 gm Documented by: Senna (Sennosides 1 Tablet) 2 tab PO HS [facility] Last Admin: 02/22/22 21:17 Dose: 2 tab Documented by: Sodium Chloride (0.9 % Sodium Chloride 10 Ml Syringe) 10 ml IV Q8 [facility] Last Admin: 02/23/22 04:54 Dose: 10 ml Documented by: Trazodone HCl (Trazodone Hcl 50 Mg Tablet) 25 mg PO HSP PRN PRN Reason: Insomnia Vitamin D (Vitamin D3 25 Mcg Tablet) 50 mcg PO DAILY [facility] Last Admin: 02/23/22 08:17 Dose: 50 mcg Documented by: A/P Narrative A/P Narrative: Assessment and Plans: *CoVID pneumonia with acute hypoxic respiratory failure: -Supplemental oxygen therapy (wean as able), currently on 2L NC -Remdesivir/Dexamethasone -proning/mobilization/OOB to chair *Leukopenia: *Multiple spinal compression fracture: Continue Morphine pump *CKD III: *HTN: Continue oral antihypertensives *DM2: -HgA1c -Hold Metformin -SSI ACHS *Anemia, macrocytic: *h/o CAD: Aspirin/Plavix/Statin *Parkinsonian tremors: *h/o Prostate cancer in remission: Outpatient PCP follow up for cancer surveillance *GERD: *ppx: Heparin / home ppi Time Spent With Patient Time: Total time spent is greater than 50% in coordination of care (as documented) at patient's floor/unit and/or counseling patient: QUALITY VTE Deep Vein Thrombosis/Pulmonary Embolism Present on Admission: No
[2022-02-23] MEDS: SENNOSIDES 1 TABLET PO SCH (20:13)
[2022-02-23] MEDS: LATANOPROST OPHTH DROPS 2.5ML BOTTLE OU SCH (20:27)
[2022-02-24] MEDS: 0.9 % SODIUM CHLORIDE 10 ML SYRINGE IV SCH ×2 (04:26→13:28)
[2022-02-24 06:32] LABS: Basophils # (Auto) 0 K/mcL (0.00-0.30); Basophils % (Auto) 0 % (0.0-2.0); Eosinophils # (Auto) 0 K/mcL (0.00-0.70); Eosinophils % (Auto) 0 % (0.0-7.0); Hematocrit 43.6 % (40.1-51.0); Hemoglobin 14.4 g/dL (13.7-17.5); Lymphocytes # (Auto) 0.75 K/mcL (1.50-4.80); Lymphocytes % (Auto) 14.6 % (15.5-49.0); Mean Cell Volume 98.6 fL (80.0-100.0); Mean Platelet Volume 9.3 fL (7.4-10.4); Monocytes # (Auto) 0.28 K/mcL (0.10-0.90); Monocytes % (Auto) 5.5 % (1.0-12.0); Neutrophils % (Auto) 79.5 % (38.0-78.0); Platelet Count 311 K/mcL (140-440); RBC 4.42 M/mcL (4.63-6.08); Red Cell Distribution Width 13.5 % (11.5-14.5); WBC 5.1 K/mcL (4.5-11.0)
[2022-02-24 06:55] LABS: ALT/SGPT 14 U/L (<40); AST/SGOT 23 U/L (<40); Albumin 3.3 gm/dL (3.2-5.2); Albumin/Globulin Ratio 0.9 (1.0-2.3); Alkaline Phosphatase 79 U/L (39-117); Bilirubin,Direct < 0.2 mg/dL (0-0.3); Bilirubin,Total 0.2 mg/dL (0.1-1.0); Blood Urea Nitrogen 25 mg/dL (8-23); Calcium 9.1 mg/dL (8.6-10.4); Carbon Dioxide 22 mmol/L (22-30); Chloride 99 mmol/L (96-108); Globulin 3.5 gm/dL (2.2-3.7); Glomerular Filtration Rate 55; Glucose 173 mg/dL (70-105); Lactate Dehydrogenase 238 U/L (135-225); Phosphorous 4.2 mg/dL (2.5-4.5); Triglycerides 99 mg/dL (<150); Uric Acid 9.5 mg/dL (2.5-8.0)
--- NOTE | 2022-02-24 07:29 | Internal Med Progress Note ---
SUBJECTIVE Subjective Patient information: Note initiated : 02/24/22 at 7:26 am Service Date, if different from initiated Date: [] Patient: Mikel Briggs 81 y/o M admitted on 02/22/22 for shortness of breath. Chief Complaint: [] Interval history: History of present illness: Mr. Briggs is a 81 year old M history of lumbar spine compression fracture status post morphine pain pump, CAD, type 2 diabetes mellitus, chronic kidney disease stage III, Parkinson disease, prostate cancer in remission, presenting with oxygen desaturations for 1 day. Patient has a history of recent fall and he was being discharged to prison [place]. He has a history of L1 compression fracture on morphine pain pump. Earlier today he was found by prison staff to have oxygen and desaturating into the mid 80s on room air. He was being tested positive for COVID-pneumonia today. Patient stated that he does not have any subjective shortness of breath. He does not have any cough or sputum productions. He does not have any respiratory wheezings. He does not have any subjective fever or chills. He is feeling mild general body weakness. He is complaining of moderate lower back pain. Vital signs significant for oxygen desaturating to the mid 80s as well as bradycardia with heart rate in the 50s. He was being placed on 5 L/min of supplemental oxygen's. Labs significant for lack of leukocytosis with WBC 4.3. Serum creatinine level 1.5. Blood glucose 112. CT chest negative for any PE. It instead showing bilateral atelectasis and bronchitis. 02/23: Afebrile overnight. Patient is down to 1 L/min of oxygen's this morning. Patient is alert breath confused. Patient denies any shortness of breath or cough or respiratory wheezing. Denies any fever or chills. Continue supplemental oxygen therapy to get up with remdesivir and dexamethasone for COVID-pneumonia. 02/24 Patient continues on 1 L nasal cannula. Patient has occasional cough with light yellow sputum. Mild shortness of breath. Review of Systems: denies headache/fever/chills/nausea/vomiting/chest or abdominal pain/diarrhea. Otherwise see above. Constitutional Vitals: Vital Signs Temp Pulse Resp BP Pulse Ox 98.3 F 54 L 20 124/78 93 02/24/22 07:06 02/24/22 07:06 02/24/22 07:06 02/24/22 07:06 02/24/22 07:06 Period Temp Pulse Resp BP Sys/[place] Pulse Ox Last 24 Hr 97 F-98.3 F 52-61 16-20 122-154/56-79 92-95 Intake and Output 02/23/22 02/24/22 02/24/22 21:59 05:59 13:59 Intake Total 600 50 Output Total 528 26 25 Balance 72 24 -25 Weight 108.953 kg Intake & Output: Intake & Output 02/23/22 02/24/22 02/24/22 21:59 05:59 13:59 Intake Total 600 50 Output Total 528 26 25 Balance 72 24 -25 Weight 108.953 kg Intake: Oral 600 50 Output: Void Amount 525 25 25 # of times incontinent of urine 3 1 Other: Meal Dinner Percent of Meal Consumed 50% Feeding Ability Assist with Tray Set Up Urine Appearance Clear Urine Color Bright Yellow Urine Odor Normal Exam: General: Alert, Awake, No acute Distress Eyes/N/T: EOMI, Head/Neck: neck supple, CV: RRR, No murmurs, Pulm: mild rhonic b/l, no Abd: soft, nontender, +BS x4 Ext: no clubbing/cyanosis/edema Neuro: Alert, no focal deficits, moves all extremities, Skin: warm/dry OBJ DATA Labs CBC & Chem 7: 02/24/22 05:53 02/24/22 05:53 Labs: Abnormal Lab Results 02/24/22 02/24/22 02/23/22 05:53 05:53 05:43 WBC RBC 4.42 L Hgb Hct MCV Neut % (Auto) 79.5 H Lymph % (Auto) 14.6 L Sac % (Auto) Lymph # (Auto) 0.75 L Sac # (Auto) D-Dimer POC VBG pO2 POC VBG HCO3 POC VBG Total CO2 POC Venous O2 Sat POC VBG Base Excess BUN 25 H Creatinine 1.3 H POC Creatinine Glucose 173 H 224 H POC Glucose Uric Acid 9.5 H POC WB Ioniz Calcium Phosphorus 5.2 H Lactate Dehydrogenase 238 H C-Reactive Protein 1.00 H 1.50 H Albumin 3.1 L Albumin/Globulin Ratio 0.9 L 0.9 L 02/23/22 02/22/22 02/22/22 05:43 19:16 19:16 WBC 2.6 L RBC 4.42 L Hgb Hct MCV 101.8 H Neut % (Auto) Lymph % (Auto) Sac % (Auto) Lymph # (Auto) 0.60 L Sac # (Auto) 0.09 L D-Dimer 3.00 H POC VBG pO2 POC VBG HCO3 POC VBG Total CO2 POC Venous O2 Sat POC VBG Base Excess BUN Creatinine POC Creatinine Glucose POC Glucose Uric Acid POC WB Ioniz Calcium Phosphorus Lactate Dehydrogenase 272 H C-Reactive Protein Albumin Albumin/Globulin Ratio 02/22/22 02/22/22 02/22/22 11:26 11:09 11:06 WBC RBC Hgb Hct MCV Neut % (Auto) Lymph % (Auto) Sac % (Auto) Lymph # (Auto) Sac # (Auto) D-Dimer POC VBG pO2 42 H POC VBG HCO3 31.9 H POC VBG Total CO2 33.0 H POC Venous O2 Sat 76.0 H POC VBG Base Excess 7.0 H* BUN Creatinine POC Creatinine 1.5 H Glucose POC Glucose 112 H Uric Acid POC WB Ioniz Calcium 1.09 L Phosphorus Lactate Dehydrogenase C-Reactive Protein Albumin 3.0 L Albumin/Globulin Ratio 02/22/22 11:06 WBC 4.3 L RBC 3.94 L Hgb 12.9 L Hct 39.7 L MCV 100.8 H Neut % (Auto) Lymph % (Auto) Sac % (Auto) 15.8 H Lymph # (Auto) 1.43 L Sac # (Auto) D-Dimer POC VBG pO2 POC VBG HCO3 POC VBG Total CO2 POC Venous O2 Sat POC VBG Base Excess BUN Creatinine POC Creatinine Glucose POC Glucose Uric Acid POC WB Ioniz Calcium Phosphorus Lactate Dehydrogenase C-Reactive Protein Albumin Albumin/Globulin Ratio Meds: Medications Acetaminophen (Acetaminophen 325 Mg Tablet) 650 mg PO Q6HP PRN; Protocol PRN Reason: Per Pain Protocol/Fever > 101 Hydrocodone Bitart/Acetaminophen (Hydrocodone/Apap 10/325mg Tablet) 1 tab PO Q4H PRN; Protocol PRN Reason: Pain Last Admin: 02/23/22 04:53 Dose: 1 tab Documented by: Albuterol/Ipratropium (Ipratropium/Albuterol 3 Ml Ampul.Neb) 3 ml NEB Q4HRT PRN PRN Reason: Wheezing Amlodipine Besylate (Amlodipine 5 Mg Tablet) 5 mg PO BID [facility] Last Admin: 02/23/22 20:13 Dose: 5 mg Documented by: Aspirin (Aspirin 81 Mg Tab.Chew) 81 mg PO DAILY [facility] Last Admin: 02/23/22 08:16 Dose: 81 mg Documented by: Atorvastatin Calcium (Atorvastatin 40 Mg Tablet) 40 mg PO QDAY [facility] Last Admin: 02/23/22 08:16 Dose: 40 mg Documented by: Carvedilol (Carvedilol 12.5 Mg Tablet) 25 mg PO BIDCC [facility] Last Admin: 02/23/22 17:09 Dose: 25 mg Documented by: Clopidogrel Bisulfate (Clopidogrel 75 Mg Tablet) 75 mg PO QDAY [facility] Last Admin: 02/23/22 08:16 Dose: 75 mg Documented by: Dexamethasone (Dexamethasone 4 Mg Tablet) 6 mg PO DAILY [facility] Last Admin: 02/23/22 08:17 Dose: 6 mg Documented by: Dextrose (Dextrose 50% 50 Ml Vial) 0 ml IV UD PRN PRN Reason: Per Sliding Scale Diagnostic Test (Pha) (Accu-Chek 1 Each Strip) 1 each FS ACHS [facility] Last Admin: 02/23/22 20:13 Dose: 1 each Documented by: Docusate Sodium (Docusate Sodium 100 Mg Capsule) 100 mg PO BID [facility] Last Admin: 02/23/22 20:13 Dose: 100 mg Documented by: Glucose (Dextrose 31 Gm Oral.Susp) 15 gm PO PRN PRN PRN Reason: Hypoglycemia Guaifenesin (Guaifenesin/Dextromethorphan Oral [place]) 10 ml PO Q4HP PRN PRN Reason: Cough Heparin Sodium (Porcine) (Heparin 5,000 Unit/Ml Vial) 5,000 unit SQ Q12 [facility] Last Admin: 02/23/22 20:13 Dose: 5,000 unit Documented by: REMDESIVIR 100 mg/ Sodium (Chloride) 250 mls @ 500 mls/hr IV Q24H [facility] Stop: 02/26/22 09:29 Last Infusion: 02/23/22 11:29 Dose: Infused Documented by: Insulin Human Lispro (Insulin Lispro 1 Unit/0.01 Ml Unit) 0 unit SQ ACHS [facility]; Protocol Last Admin: 02/23/22 20:27 Dose: 3 unit Documented by: Latanoprost (Latanoprost Ophth Drops 2.5ml Bottle) 1 gtt OU QHS [facility] Last Admin: 02/23/22 20:27 Dose: Not Given Documented by: Loratadine (Loratadine 10 Mg Tablet) 10 mg PO QDAY [facility] Last Admin: 02/23/22 08:17 Dose: 10 mg Documented by: Nitroglycerin (Nitroglycerin 0.4 Mg Tab.Subl) 0.4 mg SL Q5M PRN PRN Reason: Chest Pain Nystatin (Nystatin Powder Bottle 15gm) 1 dose TOPICAL BID [facility] Last Admin: 02/23/22 20:15 Dose: 1 dose Documented by: Omeprazole (Omeprazole 20 Mg Capsule) 20 mg PO QDAY [facility] Last Admin: 02/23/22 08:17 Dose: 20 mg Documented by: Ondansetron HCl (Ondansetron 4 Mg/2 Ml Vial) 4 mg IV Q6HP PRN PRN Reason: Nausea And Vomiting Diclofenac Sodium 1 (% Gel) 1 dose TOPICAL QIDP PRN PRN Reason: knee pain Linaclotide [Linzess (] 145 Mcg Capsule) 1 dose PO QAM [facility] Last Admin: 02/23/22 08:24 Dose: Not Given Documented by: Polyethylene Glycol (Polyethylene Glycol 3350 17 Gm Packet) 17 gm PO QDAY [facility] Last Admin: 02/23/22 08:25 Dose: 17 gm Documented by: Senna (Sennosides 1 Tablet) 2 tab PO HS [facility] Last Admin: 02/23/22 20:13 Dose: 2 tab Documented by: Sodium Chloride (0.9 % Sodium Chloride 10 Ml Syringe) 10 ml IV Q8 [facility] Last Admin: 02/24/22 04:26 Dose: 10 ml Documented by: Trazodone HCl (Trazodone Hcl 50 Mg Tablet) 25 mg PO HSP PRN PRN Reason: Insomnia Vitamin D (Vitamin D3 25 Mcg Tablet) 50 mcg PO DAILY [facility] Last Admin: 02/23/22 08:17 Dose: 50 mcg Documented by: A/P Narrative A/P Narrative: Assessment and Plans: *CoVID pneumonia with acute hypoxic respiratory failure: -Supplemental oxygen therapy (wean as able), currently on 1L NC -Remdesivir/Dexamethasone -proning/mobilization/OOB to chair -crp improving *Leukopenia: improved *Multiple spinal compression fracture: Continue Morphine pump *CKD III: *HTN: Continue oral antihypertensives *DM2: -HgA1c 5.9 -Hold Metformin -SSI ACHS *Anemia, macrocytic: *h/o CAD: Aspirin/Plavix/Statin *Parkinsonian tremors: *h/o Prostate cancer in remission: Outpatient PCP follow up for cancer surveillance *GERD: *ppx: Heparin / home ppi Time Spent With Patient Time: Total time spent is greater than 50% in coordination of care (as documented) at patient's floor/unit and/or counseling patient: QUALITY VTE Deep Vein Thrombosis/Pulmonary Embolism Present on Admission: No
[2022-02-24] MEDS: CARVEDILOL 12.5 MG TABLET PO SCH (07:58)
[2022-02-24] MEDS: ATORVASTATIN 40 MG TABLET PO SCH (07:58)
[2022-02-24] MEDS: NYSTATIN POWDER BOTTLE 15GM TOPICAL SCH (07:58)
[2022-02-24] MEDS: DEXAMETHASONE 4 MG TABLET PO SCH (07:59)
[2022-02-24] MEDS: CLOPIDOGREL 75 MG TABLET PO SCH (07:59)
[2022-02-24] MEDS: amLODIPine 5 MG TABLET PO SCH (07:59)
[2022-02-24] MEDS: DOCUSATE SODIUM 100 MG CAPSULE PO SCH (07:59)
[2022-02-24] MEDS: ASPIRIN 81 MG TAB.CHEW PO SCH (07:59)
[2022-02-24] MEDS: OMEPRAZOLE 20 MG CAPSULE PO SCH (07:59)
[2022-02-24] MEDS: VITAMIN D3 25 MCG TABLET PO SCH (07:59)
[2022-02-24] MEDS: INSULIN LISPRO 1 UNIT/0.01 ML UNIT SQ SCH ×2 (08:00→12:31)
[2022-02-24] MEDS: LORATADINE 10 MG TABLET PO SCH (08:00)
[2022-02-24] MEDS: HEPARIN 5,000 UNIT/ML VIAL SQ SCH (08:00)
[2022-02-24] MEDS: POLYETHYLENE GLYCOL 3350 17 GM PACKET PO SCH (08:01)
[2022-02-24] MEDS: Linaclotide [Linzess] 145 mcg capsule PO SCH (08:01)
[2022-02-24] MEDS: REMDESIVIR 100 MG in 0.9 % SODIUM CHLORIDE 250 ML IV SCH (09:15)
--- NOTE | 2022-02-24 11:04 | Discharge Summary ---
Discharge Provider Provider IMPORTANT FOLLOW-UP INFORMATION FOR PCP: Patient information: Note initiated : 02/24/22 at 11:02 am Service Date, if different from initiated Date: [] Patient: Mikel Briggs 81 y/o M admitted on 02/22/22 for shortness of breath. Chief Complaint: [] Date of admission: 02/22/22 14:56 Discharge date: 02/24/22 Primary care physician: Louis Saldivar MD Consults: 02/22/22 Consult to Physician [CONS] Stat Comment: Consulting Provider: Rafiq Pelayo Reason For Exam: Physician to Consult COURSE Hospital Course Hospital course: History of present illness: Mr. Briggs is a 81 year old M history of lumbar spine compression fracture status post morphine pain pump, CAD, type 2 diabetes mellitus, chronic kidney disease stage III, Parkinson disease, prostate cancer in remission, presenting with oxygen desaturations for 1 day. Patient has a history of recent fall and he was being discharged to [facility] [place]. He has a history of L1 compression fracture on morphine pain pump. Earlier today he was found by snf staff to have oxygen and desaturating into the mid 80s on room air. He was being tested positive for COVID-pneumonia today. Patient stated that he does not have any subjective shortness of breath. He does not have any cough or sputum productions. He does not have any respiratory wheezings. He does not have any subjective fever or chills. He is feeling mild general body weakness. He is complaining of moderate lower back pain. Vital signs significant for oxygen desaturating to the mid 80s as well as bradycardia with heart rate in the 50s. He was being placed on 5 L/min of supplemental oxygen's. Labs significant for lack of leukocytosis with WBC 4.3. Serum creatinine level 1.5. Blood glucose 112. CT chest negative for any PE. It instead showing bilateral atelectasis and bronchitis. 02/23: Afebrile overnight. Patient is down to 1 L/min of oxygen's this morning. Patient is alert breath confused. Patient denies any shortness of breath or cough or respiratory wheezing. Denies any fever or chills. Continue supplemental oxygen therapy to get up with remdesivir and dexamethasone for COVID-pneumonia. 02/24 Patient continues on 1 L nasal cannula. Patient has occasional cough with light yellow sputum. Mild shortness of breath. Leukopenia improved. Patient now on room air while in bed. Assessment and Plans: *CoVID pneumonia with acute hypoxic respiratory failure: -Supplemental oxygen therapy (wean as able), currently room air while in bed, may need with activity, rehab facility to monitor o2 sats especially with activity *Leukopenia: improved *Multiple spinal compression fracture: Continue Morphine pump *CKD III: *HTN: Continue oral antihypertensives *DM2: -HgA1c 5.9 *Anemia, macrocytic: *h/o CAD: Aspirin/Plavix/Statin *Parkinsonian tremors: *h/o Prostate cancer in remission: Outpatient PCP follow up for cancer surveillance *GERD: Discharge diagnosis: COVID-pneumonia with acute hypoxic respite failure leukopenia Secondary discharge diagnosis: Chronic kidney disease stage III hypertension diabetes compression fractures anemia history of CAD Parkinson's history of prostate cancer GERD Time Spent with Patient Time attestation: Total time spent providing and/or coordinating discharge services: Time spent: Greater than 30 minutes EXAM Constitutional Vitals: Temp Pulse Resp BP Pulse Ox 98.3 F 54 L 20 124/78 93 02/24/22 07:06 02/24/22 07:06 02/24/22 07:06 02/24/22 07:06 02/24/22 07:06 Discharge Data Data Completed and Pending Labs on day of discharge: Labs from last 24 hours 02/24/22 02/24/22 05:53 05:53 WBC 5.1 RBC 4.42 L Hgb 14.4 Hct 43.6 MCV 98.6 MCH 32.6 MCHC 33.0 RDW 13.5 Plt Count 311 MPV 9.3 Immature Gran % (Auto) 0.4 Neut % (Auto) 79.5 H Lymph % (Auto) 14.6 L [place] % (Auto) 5.5 Eos % (Auto) 0 Baso % (Auto) 0 Lymph # (Auto) 0.75 L [place] # (Auto) 0.28 Eos # (Auto) 0 Baso # (Auto) 0 Immature Gran # 0.02 Absolute Neutrophils 4.09 Sodium 133 Potassium 4.5 Chloride 99 Carbon Dioxide 22 Anion Gap 12.0 BUN 25 H Creatinine 1.2 GFR Calculation 55 Glucose 173 H Uric Acid 9.5 H Calcium 9.1 Phosphorus 4.2 Magnesium 2.5 Total Bilirubin 0.2 Direct Bilirubin < 0.2 GGT 45 AST 23 ALT 14 Alkaline Phosphatase 79 Lactate Dehydrogenase 238 H C-Reactive Protein 1.00 H Total Protein 6.8 Albumin 3.3 Globulin 3.5 Albumin/Globulin Ratio 0.9 L Triglycerides 99 Preliminary micro results at discharge 02/22/22 15:40 Blood Culture - Preliminary Blood 02/22/22 15:35 Blood Culture - Preliminary Blood Discharge Plan Patient/Caregiver Discharge Instructions Activity: increase activity as tolerated Diet: Consistent Carbohydrate Prescriptions: New dexamethasone 6 mg tablet 6 mg PO QDAY Qty: 2 0RF Rx Instructions: to start on 02/25/2022 Paxlovid (EUA) 150 mg x 2- 100 mg tablet See Rx Instructions .ROUTE .COMPLEX Qty: 4 0RF Rx Instructions: take TWO 150 mg tablets of nirmatrelvir with ONE 100 mg tablet of ritonavir twice daily for 2 days to start on 02/25/2022. Continued amlodipine 5 mg tablet 5 mg PO BID Qty: 120 2RF nystatin 100,000 unit/gram powder 1 applic topical BID Qty: 180 1RF cholecalciferol (vitamin D3) 50 mcg (2,000 unit) capsule 50 mcg PO QDAY Qty: 90 3RF metformin 500 mg tablet 500 mg PO BID 90 Days Qty: 180 1RF carvedilol 25 mg tablet 25 mg PO BID 90 Days Qty: 180 1RF Rx Instructions: administer with food omeprazole 20 mg capsule,delayed release(DR/EC) 20 mg PO QDAY Qty: 90 1RF polyethylene glycol 3350 17 gram/dose powder 17 g PO QDAY 0RF Label Comments: Mixed with with 8 oz water, juice, soda, coffee or tea Rx Instructions: mix into 4-8 oz. of any hot/cold/room temp. beverage; use immediately (DME) diabetic supplies, miscellan. kit See Dose Instructions .ROUTE .MEDSUPPLY Qty: 1 0RF Dose Instruction: As directed Rx Instructions: As directed to test once daily (DME) blood sugar diagnostic [Prodigy No Coding] strip See Dose Instructions .ROUTE .MEDSUPPLY Qty: 50 3RF Dose Instruction: As directed Rx Instructions: As directed to test once daily (DME) Manual Wheelchair Qty: 1 0RF Dose Instruction: As directed Rx Instructions: As directed (DME) Adult Depends (Prevail) Qty: 60 0RF Dose Instruction: As directed Rx Instructions: Use 2-3X/day clopidogrel 75 mg tablet 75 mg PO QDAY 0RF Label Comments: TAKE 1 TABLET BY MOUTH ONCE DAILY atorvastatin [Lipitor] 40 mg tablet 40 mg PO QDAY 0RF morphine 15 mg/mL cartridge See Dose Instructions mg .ROUTE .COMPLEX PRN (Reason: Pain) 0RF Rx Instructions: patient unsure of dose, uses in pain pump PRN nitroglycerin 0.3 mg tablet, sublingual 0.3 mg SUBLINGUAL Q5-15M PRN (Reason: chest pain) Qty: 30 0RF Rx Instructions: until response; do not exceed 3 doses per episode latanoprost 0.005 % drops 1 drp OPHTHALMIC (EYE) QHS 0RF Label Comments: [NO ORIGINAL SIG] hydrocodone-acetaminophen 10-325 mg tablet 1 tab PO Q4H MDD 6 PRN (Reason: Pain) Qty: 20 0RF Rx Instructions: 7*MUST LAST 30 DAYS* P/U 01/27, Start 01/27 Follow Up Plan Follow up with: Louis Saldivar MD [Primary Care Provider] - Patient Disposition: Xfer SNF Prognosis: Fair Rehab Potential: Fair I certify that the patient requires SNF services: Yes Overall status at discharge: patient is progressing back to baseline Discharge Orders: Discharge Order (Routine); Ordered 02/24/22 Ordered By: James Reyes [facility] VTE Deep Vein Thrombosis/Pulmonary Embolism Present on Admission: No
--- NOTE | 2022-03-02 10:36 | EKG ---
[facility] Test Date: 2022-02-22 Pat Name: Mikel Briggs Department: ED Room: Gender: Male Dean Of Instruction: : 1940 Requested By: Donta Reynolds Order Number: [id number] Reading MD: Marco Craig M.D. Measurements Intervals [place] Rate: 60 P: -6 OR: 237 QRS: -13 QRSD: 97 T: -2 QT: 402 QTc: 402 Interpretive Statements Sinus rhythm FIRST DEGREE AV BLOCK Possible Left ventricular hypertrophy Poor R wave progression. Borderline T abnormalities, inferior leads No significant change compared to prior ECG. Electronically Signed On 03-02-2022 10:36:49 PDT by Marco Craig M.D. /[id number]
== END 2022-02-24 15:00 | DRG 177 ==
LOC: ED 10:32 → ICU 14:56
PROVIDERS: ADMIT Internal Medicine; ATTEND Internal Medicine